=== PATIENT | female | born 1980 | race Caucasian/White ===

== ENCOUNTER 2019-03-02 12:57 | Emergency (ER) | payer SELFPAY ==
[~2019-03-02] VITALS: Ht 157.5 cm; Wt 79.4 kg
[2019-03-02 14:32] LABS: Eosinophils # (auto) 0.1 uL; Lymphocytes # (auto) 2.4 uL; Monocytes # (auto) 0.5 uL
[2019-03-02 14:34] LABS: Basophils # (auto) 0.1 uL; Basophils % (auto) 0.5 % (0.0-2.0); Eosinophils % (auto) 0.7 % (0.0-7.0); Hematocrit 39.4 % (36.0-46.0); Hemoglobin 12.6 g/dL (12.2-16.2); Lymphocytes % (auto) 20.7 % (10.0-50.0); Mean Corpuscular Hemoglobin 20.6 pg (28.0-32.0); Mean Corpuscular Volume 64.5 fL (80.0-100.0); Monocytes % (auto) 4.5 % (0.0-12.0); Neutrophils # (auto) 8.6 uL; Neutrophils % (auto) 73.6 % (37.0-80.0); Nucleated Red Blood Cells % 0.2 %; Platelet Count (auto) 239 10^3/uL (140-450); Red Blood Cells 6.11 10^6/uL (4.0-5.20); Red Cell Distribution Width 15.5 % (11.8-14.3); White Blood Cell 11.7 10^3/uL (4.4-10.8)
[2019-03-02 16:47] LABS: Albumin 3.9 g/dL (3.4-5.0); Anion Gap 9 (5-15); Blood Urea Nitrogen 18 mg/dL (7-18); Calcium 8.5 mg/dL (8.5-10.1); Carbon Dioxide 21 mmol/L (21-32); Chloride 110 mmol/L (98-107); Glucose 95 mg/dL (74-106); Magnesium 2.3 mg/dL (1.6-2.6); Potassium 3.8 mmol/L (3.5-5.1); Sodium 140 mmol/L (136-145)
[2019-03-02 16:53] LABS: Alanine Aminotransferase 15 U/L (13-56); Alkaline Phosphatase 56 U/L (45-117); Aspartate Aminotransferase 10 U/L (15-37); BUN/Creatinine Ratio 27.7; Bilirubin, Total 0.4 mg/dL (0.2-1.0); GFR African American 131 mL/min; GFR Non-African American 108 mL/min; Total Protein 7.2 g/dL (6.4-8.2)
[2019-03-02] MEDS ORDERED: ASPirin 81 mg TAB PO ONE (17:15)
[2019-03-02 18:54] VITALS: BP 130/82
== END 2019-03-02 18:58 | disposition home or self-care (01) ==
LOC: ER 12:57
DX: R07.89 Other chest pain (principal); Z90.49 Acquired absence of other specified parts of digestive tract; Z90.710 Acquired absence of both cervix and uterus
CPT/HCPCS: 36415; 71046; 80053; 83735; 84484; 85025; 93005; 94761